=== PATIENT | male | born 1980 | race Caucasian/White ===

== ENCOUNTER 2016-12-08 00:24 | Inpatient (IN) | payer BC, OTHER ==
[~2016-12-08] VITALS: Ht 185.4 cm; Wt 88.5 kg
--- NOTE | 2016-12-08 00:30 | NUR ---
PRE-ADMISSION NOTE Pt is a 36 y/o male, seen at intake, AAOx4, no SOB with mild anxiety noted at this time. Discussed with patient the admission policies of the unit. Patient is coherent and able to respond to questions appropriately. Pt is ambulatory with steady gait. Vital signs taken and as follows: BP: 136/85, P: 75, R: 16, O2: 98%, T: 98, PA: 0. Pt verbalized understanding of instructions and teachings regarding disposal of narcotic and other controlled home medications, unit protocols such as taking of vital signs Q4H and handling and disposal of contraband. Will continue with admission upon pts arrival on the unit.
[2016-12-08 00:44] VITALS: BP 136/85
--- NOTE | 2016-12-08 00:44 | NUR ---
ADMISSION NOTE Pt is a 36 y/o male admitted on 12/08/16 for Opiate dependence, arrived on the unit at 0044. Pt has NKA, denies history of seizures. Pt was able to provide UDS. Upon admission CIWA 5, COWS 6, BP: 136/85, P: 75, R: 16, O2: 98%, T: 98, PA: 0.Weight 195, height 61. Pt reports he does not have a PCP, reports he does not smoke, denies being hospitalized within past 30 days. Pt is able to understand and respond to all questions pertaining to his hospitalization. Substance Abuse History is as follows: 1. Heroin 0.5g 1g/daily, last intake of 1g on 12/04/2016 at this rate for the past 2-3 months, has been using for about 2-3 years. 2.Xanax 2-4mg/occasionally, last intake of 4mg on 12/07/2016 at this rate for the past 2-3 months, has been using for about 2-3 years. 3.Klonopin 3-4mg/occasionally, last intake of 3mg on 12/07/2016 at this rate for the past 2-3 moths, has been use for about 2-3 year. Pt reports he has hx of OxyContin use, last use was about 7 months ago. Pt reports he stopped using on his own. Pt urine drug screen resulted positive for Amphetamines. Pt takes Adderall 30mg for diagnosis of ADHD. Pts longest sober period for 2 year from [id number], per pt. Pt states this is his first time in treatment. Pt states both of his maternal uncles and paternal grandfather were alcoholics. PMH: Borderline HTN, Anxiety, Depression, ADHD and Herniated Disc L2 and fusion in (2013). Pt denies hx of seizures. Upon assessment, pt is AAOx4, presents with anxiety, skin is flushed, and has mild muscle aches. Respirations even and unlabored. Denies SOB, chest pain, N/V/D. Bowel sounds active x 4, abdomen soft. PERRLA. Skin intact, no open wounds noted. Pt denies SI/HI. Educational information provided and left at bedside. Pt oriented to room and encouraged to notify staff with any concerns. Safety measures in place. Call light within reach, side rails up x 2, bed locked and in low position. Will continue to monitor. Addendum: 12/08/16 at 0252 by AL WEBB RN PMH: Borderline HTN, Anxiety, Depression, ADHD, Sinus Sx (2012) and Herniated Disc L2 and fusion in (2012) Addendum: 12/08/16 at 0619 by AL WEBB RN Pt reported taking Subutex for 4 day Prior to [facility] admission. Pt reports taking: Suboxone SL 16mg on 12/03/2016, Suboxone SL 16mg on 12/04/2016 Suboxone SL 8mg on 12/05/2116 Suboxone SL 8mg on 12/06/2016
[2016-12-08] MEDS ORDERED: ACETAMINOPHEN 325 MG TABLET PO PRN (01:00)
[2016-12-08] MEDS ORDERED: IBUPROFEN 400 MG TABLET PO PRN (01:00)
[2016-12-08] MEDS ORDERED: MAGNESIUM HYDROXIDE 30 ML LIQUID UDC PO PRN (01:00)
[2016-12-08] MEDS ORDERED: MIRALAX 17 GM POWD.PACK PO PRN (01:00)
[2016-12-08] MEDS ORDERED: BUPRENORPHINE HCL 2 MG TAB.SUBL SL PRN (01:00)
[2016-12-08] MEDS ORDERED: LOPERAMIDE HCL 2 MG CAPSULE PO PRN ×2 (01:00)
[2016-12-08] MEDS ORDERED: ONDANSETRON 4 MG/2 ML VIAL IM PRN (01:00)
[2016-12-08] MEDS ORDERED: ONDANSETRON ODT 4 MG TAB.RAPDIS SL PRN (01:00)
[2016-12-08] MEDS ORDERED: MAG HYDROX/AL HYDROX/SIMETH 30 ML LIQUID UDC PO PRN (01:00)
[2016-12-08] MEDS ORDERED: diphenhydrAMINE 50 MG CAPSULE PO PRN (01:00)
[2016-12-08] MEDS ORDERED: DICYCLOMINE HCL 20 MG TABLET PO PRN (01:00)
[2016-12-08] MEDS ORDERED: SODI50DR BNOSTRILS (01:16)
[2016-12-08] MEDS ORDERED: SERT100T PO (01:16)
[2016-12-08 01:49] LABS: BASOPHILS # (AUTO) 0.1 K/uL (0.0-8.0); BASOPHILS % (AUTO) 1.1 % (0.0-2.0); EOSINOPHILS # (AUTO) 0.1 K/uL (0.0-0.7); EOSINOPHILS % (AUTO) 1.5 % (0.0-7.0); HEMATOCRIT 46.9 % (40-50); HEMOGLOBIN 15.6 G/DL (14.0-18.0); LYMPHOCYTES # (AUTO) 3.1 K/UL (0.8-4.8); LYMPHOCYTES % (AUTO) 35.7 % (20.5-51.5); MEAN CORPUSCULAR HEMOGLOBIN 28.6 UUG (27.0-31.0); MEAN CORPUSCULAR HGB CONC 33 g/dL (32.0-37.0); MEAN CORPUSCULAR VOLUME 86.2 FL (82.0-92.0); MONOCYTES # (AUTO) 0.7 K/UL (0.1-1.30); MONOCYTES % (AUTO) 7.7 % (0.0-11.0); NEUTROPHILS # (AUTO) 4.6 K/UL (1.8-8.9); PLATELET COUNT (AUTO) 416 K/UL (150-450); RED BLOOD CELL COUNT(AUTO) 5.44 MIL/UL (4.7-6.1); WHITE BLOOD COUNT (AUTO) 8.6 K/UL (4.0-11.2)
[2016-12-08 02:02] LABS: ALANINE AMINOTRANSFERASE 29 U/L (16-63); ALKALINE PHOSPHATASE 74 U/L (50-136); AMYLASE 44 U/L (25-115); ASPARTATE AMINOTRANSFERASE 17 U/L (15-37); BILIRUBIN,TOTAL 0.3 mg/dL (0.2-1.0); CARBON DIOXIDE 31 mmol/L (21-32); CHLORIDE 100 mmol/L (98-107); GLUCOSE 71 mg/dL (74-106); LIPASE 138 U/L (73-393); MAGNESIUM 2.1 mg/dL (1.8-2.4); POTASSIUM 3.4 mmol/L (3.5-5.1); TOTAL PROTEIN, SERUM 8.6 g/dL (6.4-8.2); UREA NITROGEN, BLOOD 13 mg/dL (7-18)
[2016-12-08 02:03] LABS: ETHANOL < 3 MG/DL (0-0)
[2016-12-08 02:12] LABS: THYROID STIMULATING HORMONE 5.861 mIU/mL (0.358-3.740)
[2016-12-08 02:17] LABS: *AMPHETAMINE, URINE POSITIVE (NEGATIVE); *BARBITURATE, URINE NEGATIVE (NEGATIVE); *CANNABINOID, URINE NEGATIVE (NEGATIVE); *COCCAINE, URINE NEGATIVE (NEGATIVE); *OPIATE, URINE POSITIVE (NEGATIVE); *PHENCYCLIDINE SCREEN,URINE NEGATIVE (NEGATIVE)
[2016-12-08] MEDS ORDERED: AMPH30CA3 PO (03:07)
[2016-12-08 04:00] VITALS: BP 105/56
[2016-12-08] MEDS: HYDROXYZINE PAMOATE 25 MG CAPSULE PO PRN (04:17)
--- NOTE | 2016-12-08 04:17 | NUR ---
PRN Administration Pt reports feeling anxious, requests aid. Vistaril 25mg PRN administered. Safety measures in place. will continue to monitor.
[2016-12-08] MEDS ORDERED: HYDROXYZINE PAMOATE 25 MG CAPSULE ONE (04:30)
[2016-12-08] MEDS ORDERED: LORAZEPAM 1 MG TABLET PO PRN ×2 (05:00)
[2016-12-08] MEDS ORDERED: LORAZEPAM 2 MG/1 ML VIAL IM PRN (05:00)
--- NOTE | 2016-12-08 05:17 | NUR ---
PRN Reassessment Upon reassessment, pt is in bed with eyes closed, resting - respirations even/unlabored. Safety measures in place, will continue to monitor.
--- NOTE | 2016-12-08 07:00 | NUR ---
End of Shift Pt is a 36 year old male admitted on 12/08/16 for Opiate dependence. Pt reported using Heroin 0.5g 1g/daily, Xanax 2-4mg/occasionally and Klonopin 3-4mg/occasionally. Pt has hx of OxyContin use. Pt reports he used Suboxone SL 16 mg on 12/03/2016 & 12/04/2016 and 8mg on 12/05/2016 & 12/06/2016. PMH: Borderline HTN, Anxiety, Depression, ADHD, Sinus Sx (2012) and Herniated Disc L2 and fusion in (2012). NKA, regular diet, fall/seizure precautions and full code. During shift, CIWA 5 and COWS 6. Vistaril 25mg PRN administered for anxiety. Pt slept for 4 hours, intake of 500 ml PO, voids x 1 and stool x0. Safety measures in place, call light within reach, side rails up x2, bed locked and in low position. Endorsed to day shift nurse.
--- NOTE | 2016-12-08 07:30 | NUR ---
START OF SHIFT Pt 36 y/o male admitted opiate dependence. Pt received in the room on bed with eyes closed resting, but easily arousable to name. Pt alert and oriented to name, place, and time. Perrla. Skin warm and dry to touch. Respirations even and unlabored. It was reported that pt slept for 4 hours last night. Bed on lowest position with side rails x2 up for safety. Call light within reach. No distress noted at this time.
[2016-12-08 08:00] VITALS: BP 118/74
[2016-12-08] MEDS ORDERED: PNEUMOCOCCAL 23-VAL P-SAC VAC 0.5 ML VIAL IM ONE (09:00)
[2016-12-08] MEDS ORDERED: TUBERCULIN,PURIF.PROT.DERIV. 5 TU/0.1 ML TEST ID ONE (09:00)
[2016-12-08] MEDS: MULTIVITAMINS,THERAPEUTIC TABLET PO SCH (09:29)
[2016-12-08] MEDS: METHOCARBAMOL 750 MG TABLET PO PRN ×2 (09:29→20:58)
--- NOTE | 2016-12-08 09:29 | NUR ---
PRN Pt states feels nauseous. Zofran odt prn per MD order given and tolerated well.
--- NOTE | 2016-12-08 09:29 | NUR ---
PRN Pt states has body aches 6/10, switches from hold and cold, and experiences chills and sweats, and has goosebumps. cows=16. Subutex SL prn per MD order given and tolerated well.
--- NOTE | 2016-12-08 09:29 | NUR ---
PRN Pt states has body aches 6/10. Robaxin po prn per MD order given and tolerated well.
[2016-12-08] MEDS ORDERED: POTASSIUM CHLORIDE 10 MEQ CAPSULE.SA PO ONE (09:30)
--- NOTE | 2016-12-08 10:29 | NUR ---
PRN DELILAH Pt states body aches 04/02. Pt observed on bed in room. No distress noted at this time.
--- NOTE | 2016-12-08 10:29 | NUR ---
PRN EVAL pt with cows=8. Pt observed on bed. No distress noted at this time.
--- NOTE | 2016-12-08 10:29 | NUR ---
PRN EVAL Pt denies any nausea at this time.
[2016-12-08] MEDS ORDERED: IBUPROFEN 600 MG TABLET PO PRN (12:15)
[2016-12-08 12:36] VITALS: BP 106/89
[2016-12-08] MEDS: BUPRENORPHINE HCL 2 MG TAB.SUBL SL SCH ×2 (14:16→20:58)
[2016-12-08] MEDS: GABAPENTIN 300 MG CAPSULE PO SCH ×2 (14:16→20:58)
[2016-12-08] MEDS: LORAZEPAM 1 MG TABLET PO SCH ×2 (14:16→20:58)
[2016-12-08] MEDS ORDERED: INFLUENZA VACCINE 2017-2018 0.5 ML DISP.SYRIN IM ONE (15:00)
[2016-12-08 18:28] VITALS: BP 137/85
--- NOTE | 2016-12-08 18:31 | NUR ---
END OF SHIFT Pt 36 y/o male admitted for opiate dependence. Pt alert and oriented to name, place, and time. Perrla. Skin warm and slightly moist to touch. Respirations even and unlabored. Pt observed isolative to room. Pt did not attend group activity today. Pt was seen by MD today. Pt medication compliant and tolerated well. No ASE noted. Bed on lowest position with side rails x2 up for safety. Call light within reach. No distress noted at this time.
[2016-12-08 20:00] VITALS: BP 117/72
--- NOTE | 2016-12-08 20:00 | NUR ---
Start of Shift Note: Report received from day shift nurse. Pt is a 36M admitted on 12/08/16 for medically-supervised withdrawal from opiates and benzodiazepines. Pt reports using 0.5-1g heroin daily for 2-3 months, and then tapering off the heroin outpatient with 18 to 8mg Suboxone since 12/03/16. Pt also reports using Xanax 2-4mg and Klonopin 3-4mg on an intermittent basis for 2-3 months. Pt is on an Ativan taper ending 12/10/16 at 21:00, and Subutex taper ending 12/11/16 at 09:00. Pt received with last COWS=6/CIWA=3, and PRN's Zofran, Subutex, and Robaxin were given during day shift. Pt is a full code. Pt is on a regular diet. Pt reports NKDA/NKFA. PMHx: borderline HTN, anxiety, depression, ADHD, L2 herniated disk fusion (2012) and sinus surgery (2013). Pt received in room and reports anxiety, diaphoresis, chills, and back pain with myalgia; pt noted with bilateral hand tremor. Bed is in low position and locked, side rails up x2, call light is within reach. Will continue to monitor.
--- NOTE | 2016-12-08 20:58 | NUR ---
PRN Robaxin: Patient complains of myalgia in lower back. Patient rates pain 5/10. Administered PRN Robaxin as ordered. Will continue to monitor.
--- NOTE | 2016-12-08 22:00 | NUR ---
PRN Robaxin Reassessment: Patient reports that PRN Robaxin was effective, and denies myalgia at this time. Will continue to monitor.
[2016-12-09] VITALS: BP 106/59
--- NOTE | 2016-12-09 | NUR ---
COWS/CIWA Deferred: COWS and CIWA are deferred for sleep. VSS. All safety precautions are in place. Will continue to monitor. Addendum: 12/09/16 at 0146 by SILVIA ALDANA RN Amended: Links added.
--- NOTE | 2016-12-09 04:00 | NUR ---
Vitals Refused, COWS/CIWA Deferred: Patient refuses ordered 04:00 vital signs. Patient educated on risks and benefits but still refused. COWS and CIWA are deferred for sleep. All safety precautions are in place. Will continue to monitor. Addendum: 12/09/16 at 0441 by SILVIA ALDANA RN Amended: Links added.
--- NOTE | 2016-12-09 07:03 | NUR ---
End of Shift Note: Pt is a 36M admitted to [facility] on 12/08/16 for medically-supervised withdrawal from opiates and benzodiazepines. Pt reported a PMHx of borderline HTN, anxiety, depression, ADHD, L2 herniated disk fusion (2012) and sinus surgery (2012). Pt is a full code, is on a regular diet, and reports NKDA/NKFA. Pt reported using 0.5-1g heroin daily for 2-3 months, then beginning Suboxone for outpatient detox on 12/03/16. Pt also reported using Xanax 2-4mg and Klonopin 3-4mg on an intermittent basis for 2-3 months. Pt continues on Ativan and Subutex tapers. Scheduled medication regime effectively managed s/s of withdrawal this shift, in addition to PRN Robaxin for myalgia. Last COWS=6/CIWA=8 at 20:00 before taper medications were administered. V/S stable throughout shift. Total fluid intake this shift: 625 ml; output: urine x 0 and BM x 0. Pt is currently in bed and slept 10 hours this shift. All needs have been attended and met. Pt endorsed to day shift nurse.
--- NOTE | 2016-12-09 07:20 | NUR ---
Start of Shift Endorsement received from nightshift nurse. Pt is a 36 y/o male admitted for Heroin, Xanax and Klonopin dependence. Pt has been placed on a 4 day Ativan and 4 day Subutex taper. Pt is tolerating the detox process AEB COWS 6, CIWA 8 at 1999. Pt has received PRN Robaxin for body aches. PT reports sleeping 10 hours. VS WNL. Full Code. PT is alert and oriented x4. Pt is in STABLE condition at this time. Remains compliant with medication and diet regimen. All needs have been met, All safety measures in place per hospital policy. Bed in lowest position, side rails up x2, call-light within reach. Will continue to monitor
[2016-12-09 08:00] VITALS: BP 113/68
[2016-12-09 08:10] LABS: HEPATITIS B SURFACE AG Negative (Negative)
[2016-12-09] MEDS ORDERED: BUPRENORPHINE HCL 2 MG TAB.SUBL SL SCH (09:00)
[2016-12-09] MEDS ORDERED: LORAZEPAM 1 MG TABLET PO SCH ×3 (09:00→21:00)
[2016-12-09] MEDS: SERTRALINE HCL 100 MG TABLET PO SCH (09:20)
[2016-12-09] MEDS: GABAPENTIN 300 MG CAPSULE PO SCH ×3 (09:20→20:37)
[2016-12-09] MEDS: MULTIVITAMINS,THERAPEUTIC TABLET PO SCH (09:21)
--- NOTE | 2016-12-09 09:57 | NUR ---
Client was prompted to attend daily groups. Client did dot give a definitive answer.
[2016-12-09 12:00] VITALS: BP 114/71
[2016-12-09] MEDS: BUPRENORPHINE HCL 2 MG TAB.SUBL SL SCH ×2 (15:39→20:37)
[2016-12-09 16:00] VITALS: BP 125/74
--- NOTE | 2016-12-09 19:25 | NUR ---
End of Shift Endorsement given to nightshift nurse. Pt is a 36 y/o male admitted for Heroin, Xanax and Klonopin dependence. Pt has been placed on a 4 day Ativan and 4 day Subutex taper. Pt is tolerating the detox process AEB COWS 6, CIWA 4 at 1600. Pt has not received PRN medications. Pt participated in groups and activities. Educated pt on Medication regimen and diet regimen. Intake: 1500ml, Void x2, BM x0. VS WNL. Full Code. PT is alert and oriented x4. Pt is in STABLE condition at this time. Remains compliant with medication and diet regimen. All needs have been met, All safety measures in place per hospital policy. Bed in lowest position, side rails up x2, call-light within reach. Will continue to monitor
--- NOTE | 2016-12-10 07:10 | NUR ---
Start of Shift Endorsement received from nightshift nurse. Pt is a 36 y/o male admitted for Heroin, Xanax and Klonopin dependence. Pt has been placed on a 4 day Ativan and 4 day Subutex taper. Pt is tolerating the detox process and mildly withdrawing AEB COWS 2, CIWA 2 at 0400. Pt has received PRN Benadryl. PT reports sleeping 5 hours. VS WNL. Full Code. PT is alert and oriented x4. Pt is in STABLE condition at this time. Remains compliant with medication and diet regimen. All needs have been met, All safety measures in place per hospital policy. Bed in lowest position, side rails up x2, call-light within reach. Will continue to monitor
[2016-12-10 08:00] VITALS: BP 104/70
[2016-12-10] MEDS ORDERED: LORAZEPAM 1 MG TABLET PO SCH (09:00)
[2016-12-10] MEDS: LORAZEPAM 1 MG TABLET PO SCH ×3 (09:00→20:46)
[2016-12-10] MEDS: MULTIVITAMINS,THERAPEUTIC TABLET PO SCH (09:00)
[2016-12-10] MEDS: SERTRALINE HCL 100 MG TABLET PO SCH (09:00)
[2016-12-10] MEDS: GABAPENTIN 300 MG CAPSULE PO SCH ×3 (09:00→20:46)
[2016-12-10] MEDS: BUPRENORPHINE HCL 2 MG TAB.SUBL SL SCH ×3 (09:00→20:47)
[2016-12-10 12:00] VITALS: BP 122/65
[2016-12-10 16:00] VITALS: BP 114/68
--- NOTE | 2016-12-10 18:50 | NUR ---
End of Shift Endorsement given to nightshift nurse. Pt is a 36 y/o male admitted for Heroin, Xanax and Klonopin dependence. Pt has been placed on a 4 day Ativan and 4 day Subutex taper. Pt is tolerating the detox process and mildly withdrawing AEB COWS 4, CIWA 2 at 1600. Pt has not received PRN medications. Pt participated in groups and activities. Educated pt importance of participating in groups and building the tools to help him stay sober. Educated pt on deep breathing technique to help relieve minor to moderate anxiety. . VS WNL. Full Code. PT is alert and oriented x4. Pt is in STABLE condition at this time. Remains compliant with medication and diet regimen. All needs have been met, All safety measures in place per hospital policy. Bed in lowest position, side rails up x2, call-light within reach. Will continue to monitor
--- NOTE | 2016-12-10 19:55 | NUR ---
START OF SHIFT Received report from day shift nurse. Pt is lying in bed resting. He is a 36 yo male admitted to [facility] on 12/08 for Opiate and BZD dependence. He is A&O x4 and ambulatory. NKA, full code status, and on a regular diet. He has a PMH of borderline HTN, herniated disc fusion, anxiety, depression, and ADHD. On admission he reported using heroin 0.5-1 gram per day, Xanax 2-4mg occasionally, Klonopin 3-4mg occasionally. He reported using Suboxone to taper at home for three days prior to admission. Pt started a 4 day Subutex and 4 day Ativan taper on 12/08. He reports feeling "a little down" because he misses his . Pt denies SI/HI. Provided support. Tapers due tonight. Fall and seizure precautions in place. Bed is down with call light in reach.
[2016-12-10 20:00] VITALS: BP 135/83
[2016-12-10] MEDS: QUETIAPINE FUMARATE 25 MG TABLET PO PRN (20:47)
--- NOTE | 2016-12-10 20:48 | NUR ---
PRN Seroquel Pt reports inability to sleep. PRN Seroquel administered.
--- NOTE | 2016-12-10 21:48 | NUR ---
PRN Seroquel reassessment PRN Seroquel effective. Pt is lying in bed resting with eyes closed. Respirations even and unlabored. Safety measures in place.
[2016-12-11] VITALS: BP 136/79
--- NOTE | 2016-12-11 | NUR ---
0000 COWS and CIWA deferred COWS and CIWA ordered Q4HWA. Pt is lying in bed resting with eyes closed. Respirations even and unlabored. Vital signs obtained. Safety measures in place.
--- NOTE | 2016-12-11 04:00 | NUR ---
0400 Vitals refused/COWS and CIWA deferred Pt refused to be woken for 0400 vitals. He is lying in bed resting with eyes closed. Respirations even and unlabored. COWS and CIWA ordered Q4HWA. Safety measures in place.
--- NOTE | 2016-12-11 07:10 | NUR ---
END OF SHIFT Report provided to day shift nurse. Pt is lying in bed resting. He is a 36 yo male admitted to [facility] on 12/08 for Opiate and BZD dependence. He is A&O and ambulatory. NKA, full code status, and on a regular diet. He has a PMH of borderline HTN, herniated disc fusion, anxiety, depression, and ADHD. Upon admission he admitted to using heroin 0.5-1 gram per day, Xanax 2-4mg occasionally, Klonopin 3-4mg occasionally. He also reported using Suboxone to taper at home for three days prior to admission. 4 day subutex and 4 day ativan tapers started on 12/08. PRN Seroquel administered. Last COWS 4 and CIWA 4. He drank 1000mL and slept for 9 hours. Fall and seizure precautions in place. Bed is down with call light in reach.
--- NOTE | 2016-12-11 07:15 | NUR ---
Start of Shift Endorsement received from nightshift nurse. Pt is a 36 y/o male admitted for Heroin, Xanax and Klonopin dependence. Pt has been placed on a 4 day Ativan and 4 day Subutex taper. Pt is tolerating the detox process and mildly withdrawing AEB COWS 4, CIWA 4 at 0400. Pt has received PRN Seroquel. Pt reports readiness for sobriety and feels well rested. Pt reports the Seroquel was effective. PT reports sleeping 9 hours. VS WNL. Full Code. PT is alert and oriented x4. Pt is in STABLE condition at this time. Remains compliant with medication and diet regimen. All needs have been met, All safety measures in place per hospital policy. Bed in lowest position, side rails up x2, call-light within reach. Will continue to monitor
[2016-12-11 08:00] VITALS: BP 111/72
[2016-12-11] MEDS: BUPRENORPHINE HCL 2 MG TAB.SUBL SL SCH ×2 (08:27→20:33)
[2016-12-11] MEDS: GABAPENTIN 300 MG CAPSULE PO SCH ×3 (08:27→20:31)
[2016-12-11] MEDS: MULTIVITAMINS,THERAPEUTIC TABLET PO SCH (08:27)
[2016-12-11] MEDS: LORAZEPAM 1 MG TABLET PO SCH ×2 (08:27→20:31)
[2016-12-11] MEDS: SERTRALINE HCL 100 MG TABLET PO SCH (08:27)
[2016-12-11] MEDS ORDERED: BUPRENORPHINE HCL 2 MG TAB.SUBL SL SCH (09:00)
[2016-12-11] MEDS ORDERED: LORAZEPAM 1 MG TABLET PO SCH (09:00)
[2016-12-11 12:00] VITALS: BP 117/65
[2016-12-11] MEDS: CLONIDINE HCL 0.1 MG TABLET PO PRN (15:25)
[2016-12-11 17:32] VITALS: BP 126/68
--- NOTE | 2016-12-11 18:52 | NUR ---
End of Shift Endorsement given to nightshift nurse. Pt is a 36 y/o male admitted for Heroin, Xanax and Klonopin dependence. Pt has been placed on a 4 day Ativan and 4 day Subutex taper. Pt is tolerating the detox process and mildly withdrawing AEB COWS 3, CIWA 3 at 1600. Pt has received PRN Clonidine for increased anxiety and chills. Medication was effective, pt reports relieve from anxiety and chills. Pt participated in groups and activities. Pt reports readiness for discharge. Reinforced medication regimen teaching and medication S/E. Reinforced deep breathing technique to help relieve minor to moderate anxiety, pt demonstrated the technique correctly. Teaching was successful. Intake: 1500ml, Void x4, BM x1. VS WNL. Full Code. PT is alert and oriented x4. Pt is in STABLE condition at this time. Remains compliant with medication and diet regimen. All needs have been met, All safety measures in place per hospital policy. Bed in lowest position, side rails up x2, call-light within reach. Will continue to monitor
--- NOTE | 2016-12-11 20:00 | NUR ---
START OF SHIFT Received report from day shift nurse. Pt is lying in bed resting. He is a 36 yo male admitted to [facility] on 12/08 for Opiate and BZD dependence. He is A&O x4 and ambulatory. NKA, full code status, and on a regular diet. He has a PMH of borderline HTN, herniated disc fusion, anxiety, depression, and ADHD. Upon admission he admitted to using heroin 0.5-1 gram per day, Xanax 2-4mg occasionally, Klonopin 3-4mg occasionally. He reported using Suboxone to taper at home for three days prior to admission. 4 day Subutex and 4 day Ativan tapers started on 12/08. Tapers are working well to manage withdrawal symptoms. He reports mild anxiety and mild headache. Fall and seizure precautions in place. Bed is down with call light in reach.
[2016-12-11] MEDS: QUETIAPINE FUMARATE 25 MG TABLET PO PRN (20:31)
--- NOTE | 2016-12-11 20:32 | NUR ---
PRN Seroquel Pt reports inability to sleep. PRN Seroquel administered.
--- NOTE | 2016-12-11 21:32 | NUR ---
PRN Seroquel reassessment PRN Seroquel effective. Pt is lying in bed resting with eyes closed. Respirations even and unlabored. Safety measures in place.
[2016-12-11 22:00] VITALS: BP 118/67
--- NOTE | 2016-12-12 07:25 | NUR ---
END OF SHIFT Report provided to day shift nurse. Pt is lying in bed resting. He is a 36 yo male admitted to [facility] on 12/08 for Opiate and BZD dependence. He is A&O and ambulatory. NKA, full code status, and on a regular diet. He has a PMH of borderline HTN, herniated disc fusion, anxiety, depression, and ADHD. Upon admission he admitted to using heroin 0.5-1 gram per day, Xanax 2-4mg occasionally, Klonopin 3-4mg occasionally. He reported using Suboxone to taper at home for three days prior to admission. 4 day Subutex and 4 day Ativan tapers started on 12/08. PRN Seroquel administered. Last COWS 4 and CIWA 4. He drank 1300mL and slept for 7 hours. Fall and seizure precautions in place. Bed is down with call light in reach.
--- NOTE | 2016-12-12 07:45 | NUR ---
START OF SHIFT Rcvd endorsement from ongoing nurse, client is in bed, he is a/o x 4, he presents with anxious mood and flat affect and clammy skin. Client reports chills, body aches, abdominal cramps, and decreased appetite. Encouraged client to attend group therapy for skills to maintain sober. Encouraged client to increase PO fluid as tolerated to facilitate detox. Client is a 36 y/o male, admitted to [facility] for withdrawal from benzodiazepines and heroin. Client is on last of 4 day Ativan/ 4 day Subutex taper, tolerating well . Last CIWA 2/COWS 4 @ 0400. PRN Seroquel 50mg PO for inability to sleep, client slept 7 hrs. He denies any hx of withdrawal-induced seizures. He reports NKA, he is full code, Regular diet. Side rails x 2 up/padded, as seizure precautions. Call light within reach.
[2016-12-12 08:00] VITALS: BP 103/63
[2016-12-12] MEDS ORDERED: BUPRENORPHINE HCL 2 MG TAB.SUBL SL SCH (09:00)
[2016-12-12] MEDS ORDERED: LORAZEPAM 1 MG TABLET PO SCH (09:00)
[2016-12-12] MEDS: MULTIVITAMINS,THERAPEUTIC TABLET PO SCH (09:46)
[2016-12-12] MEDS: SERTRALINE HCL 100 MG TABLET PO SCH (09:46)
[2016-12-12] MEDS: GABAPENTIN 300 MG CAPSULE PO SCH ×3 (09:47→20:13)
[2016-12-12 12:00] VITALS: BP 139/86
--- NOTE | 2016-12-12 14:38 | NUR ---
Therapist prompted client about group times. Client stated he will attend groups today.
[2016-12-12] MEDS: CLONIDINE HCL 0.1 MG TABLET PO PRN (14:41)
[2016-12-12] MEDS: HYDROXYZINE PAMOATE 25 MG CAPSULE PO PRN (14:41)
--- NOTE | 2016-12-12 14:41 | NUR ---
PRN Bentyl 20mg Po, Clonidine 0.1mg, Vistaril 25mg PO administered for abdominal spasms, irritability, and anxiety respectively. Call light within reach. will continue to monitor.
--- NOTE | 2016-12-12 15:41 | NUR ---
Reassessment PRN Bentyl 20mg Po, Clonidine 0.1mg, Vistaril 25mg PO noted effective, client reports relief from abdominal spasms, feels less irritable and less anxious. Client able to join group therapy.
[2016-12-12 16:55] VITALS: BP 120/76
[2016-12-12] MEDS ORDERED: METH-406 PO (19:15)
[2016-12-12] MEDS ORDERED: HYDR-3895 PO (19:15)
[2016-12-12] MEDS ORDERED: GABA-534 PO ×2 (19:15)
[2016-12-12] MEDS ORDERED: QUET25TA PO (19:15)
[2016-12-12] MEDS ORDERED: CLONIDINE HCL 0.1 MG TABLET PO ONE (19:15)
[2016-12-12] MEDS ORDERED: CLON0.1T14 PO (19:15)
[2016-12-12] MEDS ORDERED: HYDROXYZINE PAMOATE 25 MG CAPSULE PO ONE (19:15)
[2016-12-12] MEDS ORDERED: DICY20TA28 PO (19:15)
[2016-12-12] MEDS ORDERED: IBUP-1955 PO (19:15)
--- NOTE | 2016-12-12 19:30 | NUR ---
END OF SHIFT Client is a 36 y/o male, a/o x 4, he was admitted to [facility] for withdrawal from benzodiazepines and heroin. Client completed 4 day Ativan/ 4 day Subutex taper, tolerated well . Last CIWA 3/ COWS 4 @ 1600. PRN Bentyl 20mg Po, Clonidine 0.1mg, Vistaril 25mg PO administered for abdominal spasms, irritability, and anxiety respectively, noted effective. Client is schedule for discharge tomorrow to [facility]. One time dose of Clonidine and Vistaril ordered, client is in group, endorsed to incoming nurse.Client was compliant with group therapy for skills to maintain sober. Adequate PO fluid intake 2840mL, void x 3, stool x 1. He denies any hx of withdrawal-induced seizures. He reports NKA, he is full code, Regular diet. Side rails x 2 up/padded, as seizure precautions. Call light within reach.
[2016-12-12 20:00] VITALS: BP 129/92
--- NOTE | 2016-12-12 20:00 | NUR ---
START OF SHIFT Received report from day shift nurse. Pt attended a group meeting and returned to his room after. He is a 36 yo male admitted to [facility] on 12/08 for Opiate and BZD dependence. He is A&O x4 and ambulatory. NKA, full code status, and on a regular diet. He has a PMH of borderline HTN, herniated disc fusion, anxiety, depression, and ADHD. Upon admission he admitted to using heroin 0.5-1 gram per day, Xanax 2-4mg occasionally, Klonopin 3-4mg occasionally. He reported using Suboxone to taper at home for three days prior to admission. 4 day Subutex and 4 day Ativan tapers completed and he is scheduled for discharge tomorrow. He reports anxiety. New one time orders placed by . Fall and seizure precautions in place. Bed is down with call light in reach.
[2016-12-12] MEDS: QUETIAPINE FUMARATE 25 MG TABLET PO PRN (20:13)
--- NOTE | 2016-12-12 20:14 | NUR ---
PRN Seroquel administration Pt reports inability to sleep. PRN Seroquel administered.
[2016-12-12] MEDS ORDERED: HYDROXYZINE PAMOATE 25 MG CAPSULE ONE (20:17)
[2016-12-12] MEDS ORDERED: CLONIDINE HCL 0.1 MG TABLET ONE (20:17)
--- NOTE | 2016-12-12 21:14 | NUR ---
PRN Seroquel reassessment PRN Seroquel effective. Pt is lying in bed resting with eyes closed. Respirations even and unlabored. Safety measures in place.
[2016-12-13] VITALS: BP 105/50
--- NOTE | 2016-12-13 | NUR ---
0000 COWS and CIWA deferred COWS and CIWA ordered Q4HWA. Pt is lying in bed resting with eyes closed. Vital signs obtained. Safety measures in place.
--- NOTE | 2016-12-13 07:30 | NUR ---
END OF SHIFT Report provided to day shift nurse. Pt is lying in bed resting. He is a 36 yo male admitted to [facility] on 12/08 for Opiate and BZD dependence. He is A&O x4 and ambulatory. NKA, full code status, and on a regular diet. He has a PMH of borderline HTN, herniated disc fusion, anxiety, depression, and ADHD. Upon admission he admitted to using heroin 0.5-1 gram per day, Xanax 2-4mg occasionally, Klonopin 3-4mg occasionally. He reported using Suboxone to taper at home for three days prior to admission. 4 day Subutex and 4 day Ativan tapers completed and he is scheduled for discharge today. PRN Seroquel administered. Last COWS 3 and CIWA 3. He drank 1135mL and slept for 8 hours. Fall and seizure precautions in place. Bed is down with call light in reach.
--- NOTE | 2016-12-13 07:30 | NUR ---
START OF SHIFT NOTE: Received report from rn night nurse. Pt is a 36 y/o male admitted for Heroin, Xanax and Klonopin dependence. Pt has completed a 4 day Ativan and 4 day Subutex taper. To be discharged this AM. Pt alert and oriented X4. Color good, skin warm and dry. Respirations even and unlabored. Safety precautions observed. Call light within reach.
--- NOTE | 2016-12-13 08:15 | NUR ---
VSS Pt signed discharge papers and medication bag.
[2016-12-13] MEDS: MULTIVITAMINS,THERAPEUTIC TABLET PO SCH (08:33)
[2016-12-13] MEDS: GABAPENTIN 300 MG CAPSULE PO SCH (08:33)
[2016-12-13] MEDS: SERTRALINE HCL 100 MG TABLET PO SCH (08:34)
--- NOTE | 2016-12-13 09:35 | NUR ---
Pt discharged in stable condition with all valuables, belongings and home medications. To [facility] via [facility] private car.
== END 2016-12-13 09:35 | disposition other institution (70) | DRG 895 ==
LOC: SRC 00:24
PROVIDERS: ADMIT Internal Medicine; ATTEND Internal Medicine
PROC: HZ2ZZZZ Detoxification Services for Substance Abuse Treatment (ICD-10-PCS; principal; 2016-12-08)
PROC: HZ41ZZZ Group Counseling for Substance Abuse Treatment, Behavioral (ICD-10-PCS; 2016-12-09)
PROC: HZ31ZZZ Individual Counseling for Substance Abuse Treatment, Behavioral (ICD-10-PCS; 2016-12-10)
DX: F11.23 Opioid dependence with withdrawal (principal); E07.81 Sick-euthyroid syndrome; F13.230 Sedative, hypnotic or anxiolytic dependence with withdrawal, uncomplicated; E87.6 Hypokalemia; F15.90 Other stimulant use, unspecified, uncomplicated; F98.8 Other specified behavioral and emotional disorders with onset usually occurring in childhood and adolescence; G89.29 Other chronic pain; Z80.8 Family history of malignant neoplasm of other organs or systems; Z81.1 Family history of alcohol abuse and dependence; Z79.899 Other long term (current) drug therapy; Z98.1 Arthrodesis status; F41.9 Anxiety disorder, unspecified; F32.9 Major depressive disorder, single episode, unspecified; M54.5 Low back pain
CPT/HCPCS: 36415; 70030-TC; 80307; 80324; 80361; 83690; 83735; 84443; 85025; 86580; 86592; 86705; 86803; 87340; 87806; 90686; A4663; G0480; Q0162; Q0163

== ENCOUNTER 2017-07-05 19:25 | Inpatient (IN) | payer BC, OTHER ==
[~2017-07-05] VITALS: Ht 188 cm; Wt 88.5 kg
[~2017-07-05 19:25] MED LIST: CLON0.1T14 PO; DICY20TA28 PO; GABA-534 PO; HYDR-3895 PO; IBUP-1955 PO; METH-406 PO; QUET25TA PO; SERT100T PO; SODI50DR BNOSTRILS
[2017-07-05 19:55] VITALS: BP 138/83
--- NOTE | 2017-07-05 19:55 | NUR ---
RPRE-ADMISSION NOTE VS BP-138/83 T-98.5 P-86 R-15 PA-0/10. SpO2 AT 96 % IN RA. PATIENT AMBULATORY. SPEECH IS CLEAR AND ABLE TO ANSWER APPROPRIATELY. PATIENT STATES HES ALLERGIC TO SHELLFISH. NO SEIZURE HISTORY. PATIENT BROUGHT HOME MEDICATION. PATIENT MILDLY INTOXICATED. WILL CONTINUE ADMISSION ON 3RD FLOOR.
[2017-07-05] MEDS ORDERED: NICOTINE POLACRILEX 4 MG GUM-PK OF TEN BC PRN (21:00)
[2017-07-05] MEDS ORDERED: DICYCLOMINE HCL 20 MG TABLET PO PRN (21:00)
[2017-07-05] MEDS ORDERED: ONDANSETRON 4 MG/2 ML VIAL IM PRN (21:00)
[2017-07-05] MEDS ORDERED: LORAZEPAM 1 MG TABLET PO PRN ×2 (21:00)
[2017-07-05] MEDS ORDERED: METHOCARBAMOL 750 MG TABLET PO PRN (21:00)
[2017-07-05] MEDS ORDERED: ONDANSETRON ODT 4 MG TAB.RAPDIS SL PRN (21:00)
[2017-07-05] MEDS ORDERED: diphenhydrAMINE 50 MG CAPSULE PO PRN (21:00)
[2017-07-05] MEDS ORDERED: MAG HYDROX/AL HYDROX/SIMETH 30 ML LIQUID UDC PO PRN (21:00)
[2017-07-05] MEDS ORDERED: BUPRENORPHINE HCL 2 MG TAB.SUBL SL PRN (21:00)
[2017-07-05] MEDS ORDERED: NICOTINE 14 MG/24HR PATCH TD PRN (21:00)
[2017-07-05] MEDS ORDERED: MAGNESIUM HYDROXIDE 30 ML LIQUID UDC PO PRN (21:00)
[2017-07-05] MEDS ORDERED: HYDROXYZINE PAMOATE 25 MG CAPSULE PO PRN (21:00)
[2017-07-05] MEDS ORDERED: CLONIDINE HCL 0.1 MG TABLET PO PRN (21:00)
[2017-07-05] MEDS ORDERED: IBUPROFEN 600 MG TABLET PO PRN (21:00)
[2017-07-05] MEDS ORDERED: LORAZEPAM 2 MG/1 ML VIAL IM PRN (21:00)
[2017-07-05] MEDS ORDERED: LOPERAMIDE HCL 2 MG CAPSULE PO PRN ×2 (21:00)
[2017-07-05] MEDS ORDERED: ACETAMINOPHEN 325 MG TABLET PO PRN (21:00)
[2017-07-05] MEDS ORDERED: MIRALAX 17 GM POWD.PACK PO PRN (21:00)
--- NOTE | 2017-07-05 21:00 | NUR ---
ADMISSION NOTE PATIENT CAME IN THE UNIT AT 2016. PATIENT IS A 37 YEAR OLD MALE WHO PRESENTS TO [facility] FOR SUPERVISED WITHDRAWAL FROM BENZO/OPIATE. HEIGHT IS 6'2 AND 195 LBS. LUNGS CLEAR AND ABDOMEN SOFT AND NON-DISTENDED. BOWEL SOUNDS ACTIVE ON ALL QUADRANT. LAST BOWEL MOVEMENT TODAY AND PATIENT HAD DIFFICULTY URINATING, PER PATIENT, ONLY WHEN HES ON METH. PATIENT ABLE TO PROVIDE UA AT INTAKE. RESPIRATION EVEN AND UNLABORED. NO SOB. BODY CHECK DONE , SKIN CLEAR AND INTACT. PATIENT REQUESTED TO BE FULL CODE AND REGULAR DIET. REPORTS PMH OF ANXIETY, DEPRESSION, JAW SURGERY (5 YEARS AGO) AND LEFT ANKLE SURGERY LAST 1997. NO SEIZURE HISTORY. PATIENT BROUGHT HOME MEDS (ZOLOFT ). PATIENT DOES NOT HAVE PCP. HE REFUSED TO HAVE PNEUMONIA VACCINE BECAUSE OF THE ADVERSE REACTIONS. PATIENT IS ALLERGIC TO SHELLFISH. 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 HES HERE BECAUSE "I WANT TO GET SOBER". HE RELAPSED ON METH 1 MONTHS AGO, PER PATIENT THAT HE RECEIVED PACKAGE WITH METH INSIDE, IT WAS MISTAKENLY SENT TO HIS HOUSE. PATIENTS DRUG OF CHOICE ARE: 1.XANAX (PRESCRIBED FOR ANXIETY) STARTED USING 3 YEARS AGO. HE TAKES 2 MG DAILY FOR 1 MONTHS . LAST USE WAS 3 MG ON 07/04/17 2.KLONOPIN-(PRESCRIBED FOR ANXIETY) STARTED USING 5 YEARS AGO. HE TAKES 4 MG DAILY FOR 1 MONTHS . LAST USE WAS 6 MG ON 07/05/17 3.SUBOXONE (PRESCRIBED FOR MAINTENANCE FOR HEROIN USE)-STARTED USING 3 MONTHS AGO. HE TAKES 8 MG DAILY FOR 3 MONTHS. LAST USE WAS 8 MG ON 07/04/17 4.METHAMPHETAMINE (SNORT)-STARTED USING LAST YEAR. HE SNORTS 4-7 LINE DAILY FOR 1 MONTHS. LAST USE WAS "7 LINES" ON 07/05/17 HE STATES THAT HE WAS USING HEROIN BEFORE , LAST USE WAS 10 MONTHS AGO. PATIENT STATE HES NOT A SMOKER BUT SMOKES ONLY WHEN HE'S IN DETOX. NO SI/HI. PER PATIENT HES LONGEST PERIOD OF SOBRIETY WAS 2 YEARS IN [id number]. TREATMENT HISTORY: 1.[facility] IN [place] ON 2016 2. [facility] NOV 2016 3.[facility]--2016 PATIENT IS MILDLY INTOXICATED. LAST COWS 7 AND CIWA 7. PATIENT ANXIOUS, RESTLESS, FACE FLUSHED AND SWEATING .PATIENT WAS SEEN BY DR Mayank SONI. PATIENT ORIENTED TO SURROUNDINGS AND HOW TO USE CALL LIGHT . EXPLAINED UNIT , SMOKING POLICIES AND Q4HRS VS. ON FALL PRECAUTION. SAFETY MEASURES IN PLACE. CALL LIGHT IN REACH. WILL CONTINUE TO MONITOR.
[2017-07-05 21:44] LABS: *AMPHETAMINE, URINE POSITIVE (NEGATIVE); *BARBITURATE, URINE NEGATIVE (NEGATIVE); *CANNABINOID, URINE NEGATIVE (NEGATIVE); *COCCAINE, URINE NEGATIVE (NEGATIVE); *OPIATE, URINE NEGATIVE (NEGATIVE); *PHENCYCLIDINE SCREEN,URINE NEGATIVE (NEGATIVE)
[2017-07-05 21:50] LABS: BASOPHILS % (AUTO) 0.6 % (0.0-2.0); EOSINOPHILS # (AUTO) 0.3 K/uL (0.0-0.7); EOSINOPHILS % (AUTO) 5.6 % (0.0-7.0); HEMATOCRIT 37.1 % (36.7-47.1); LYMPHOCYTES # (AUTO) 1.8 K/uL (20.0-40.0); LYMPHOCYTES % (AUTO) 34.7 % (20.5-51.5); MEAN CORPUSCULAR HEMOGLOBIN 29.9 uug (23.8-33.4); MEAN CORPUSCULAR HGB CONC 35 g/dL (32.5-36.3); MEAN CORPUSCULAR VOLUME 85.5 fL (73.0-96.2); MONOCYTES # (AUTO) 0.4 K/uL (2.0-10.0); MONOCYTES % (AUTO) 7.4 % (0.0-11.0); NEUTROPHILS # (AUTO) 2.7 K/uL (1.8-8.9); NEUTROPHILS % (AUTO) 51.7 % (38.5-71.5); PLATELET COUNT (AUTO) 253 K/uL (152-348); RED BLOOD CELL COUNT(AUTO) 4.34 MIL/uL (4.06-5.63); WHITE BLOOD COUNT (AUTO) 5.2 K/uL (3.6-10.2)
[2017-07-05 22:00] LABS: ALANINE AMINOTRANSFERASE 31 U/L (16-63); ALKALINE PHOSPHATASE 68 U/L (50-136); ASPARTATE AMINOTRANSFERASE 20 U/L (15-37); BILIRUBIN,TOTAL 0.2 mg/dL (0.2-1.0); CARBON DIOXIDE 30 mmol/L (21-32); CHLORIDE 106 mmol/L (98-107); CREATININE 1.1 mg/dL (0.6-1.3); ETHANOL < 3 MG/DL (0-0); GLUCOSE 106 mg/dL (74-106); MAGNESIUM 2.2 mg/dL (1.8-2.4); POTASSIUM 3.5 mmol/L (3.5-5.1); UREA NITROGEN, BLOOD 13 mg/dL (7-18)
[2017-07-05] MEDS ORDERED: LORAZEPAM 1 MG TABLET PO SCH (22:00)
[2017-07-05] MEDS ORDERED: SERT100T PO (22:52)
[2017-07-06] VITALS: BP 130/76
--- NOTE | 2017-07-06 | NUR ---
COWS/CIWA DEFERRED PATIENT SLEEPING. RESPIRATION EVEN AND UNLABORED. WILL CONTINUE TO MONITOR.
[2017-07-06 04:00] VITALS: BP 126/81
--- NOTE | 2017-07-06 04:00 | NUR ---
PATIENT SLEEPING. RESPIRATION EVEN AND UNLABORED. WILL CONTINUE TO MONITOR.
--- NOTE | 2017-07-06 07:16 | NUR ---
END OF SHIFT NOTE PATIENT SLEPT 7 HOURS. FLUID INTAKE 588 ML. VOIDED X 1. NO BM. PATIENT IS A 37 YEAR OLD MALE NEWLY ADMITTED FOR OPIATE/BENZO WITHDRAWAL. PATIENT WAS PLACED ON 5 DAY ATIVAN AND 5 DAY SUBUTEX TAPER TO START TODAY. PATIENT COMPLIANT WITH CARE AND MEDICATION. PATIENT DID NOT REQUIRE PRN MEDICATION. SCHEDULED ATIVAN GIVEN ORDERED. SAFETY MEASURES IN PLACE. CALL LIGHT IN REACH. WILL CONTINUE TO MONITOR. LAST COWS 7 AND CIWA 7.
--- NOTE | 2017-07-06 07:20 | NUR ---
Start Of Shift Report received from duct layer nurse. Pt is a 37 year old male admitted for BENZO, and Opiate withdrawals. Per duct layer nurse pt's last CIWA was 7 and COWS was a 7. Pt is continues his 5 day Ativan and 5 Day Subutex tapers. Upon start of shift pt noted laying in his bed with his eyes closed resting, breathing even and unlabored. When greeted pt stated " Im feeling terrible can I please have my morning medications so I can feel better". Pt's room appears unorganized and messy, pt has water, soda bottles and candy wraps thrown around the room, there is candy all over the floor. Pt appears anxious, sweaty and flushed. During assessment, pt is AOx3. Lung sounds clear bilaterally. Radial pulse is regular and non-bounding. Abdomen soft and non-tender. Pt's skin is warm and intact. pt denies any pain at the moment. Encouraged pt to drink plenty of fluids to keep hydrated and help the detox process. Pt did not received any PRN medications last night, pt slept a total of 8 hours last night. Bed in lowest position. Side rails up x2. Call light functioning and within reach. All needs attended and met. Will continue to monitor.
[2017-07-06 08:00] VITALS: BP 137/77
[2017-07-06] MEDS ORDERED: TUBERCULIN,PURIF.PROT.DERIV. 5 TU/0.1 ML TEST ID ONE (09:00)
[2017-07-06] MEDS: LORAZEPAM 1 MG TABLET PO SCH ×3 (09:05→21:13)
[2017-07-06] MEDS: BUPRENORPHINE HCL 2 MG TAB.SUBL SL SCH ×3 (09:05→21:13)
[2017-07-06] MEDS: GABAPENTIN 300 MG CAPSULE PO SCH ×2 (09:05→21:13)
[2017-07-06 12:00] VITALS: BP 112/77
[2017-07-06] MEDS: VENLAFAXINE XR 75 MG CAP.SR.24H PO SCH (15:00)
[2017-07-06 16:00] VITALS: BP 117/79
--- NOTE | 2017-07-06 19:00 | NUR ---
Start of Shift Patient Received. Patient is noted in his room sleeping but easily aroused to verbal stimuli. Breathing even and non labored. Per endorsement, patient continues on 5 day Subtex and 5 day Ativan. Patient has been noted to be isolative to room due to taper medication. No PRN medications administered. Last noted COWS 7 and CIWA 8. All needs attended to promptly. Will continue to monitor.
--- NOTE | 2017-07-06 19:01 | NUR ---
End Of Shift Report given to night clerk nurse, plan of care reviewed, VS monitored closely q 4 hours. Withdrawal symptoms were closely monitored, medications given as scheduled. Initial COWS 10 CIWA 10. Patient encouraged adequate PO fluid intake as tolerated. Patient presented with tremors sweats, and anxiety during the day. Pt did not receive any PRN medications during the day. Last COWS 8 CIWA 9. Per patient, Subutex and Ativan have been helping him with his withdrawal symptoms. Pt ate all of his meals, attended some groups and activities. Pt refused to have a TB test, Plan of care followed, MD updated on patients condition Patient encouraged to attend all group therapies/sessions to learn new coping skills to recent relapse, patient denies SI/HI. all safety measures in place, bed in lowest locked position, call light within reach. All needs met and attended.
[2017-07-06 20:30] VITALS: BP 134/88
[2017-07-07 00:20] VITALS: BP 126/79
[2017-07-07 04:15] VITALS: BP 122/77
--- NOTE | 2017-07-07 07:02 | NUR ---
End of Shift Patient is in bed sleeping. Breathing even and non labored. Patient continues on a 5 day Subutex taper and 5 day Ativan taper. Patient is noted to be isolative to room due to increased signs and symptoms of withdraw. No PRN medications administered. Last noted COWS 7 and CIWA 8. All needs attended to promptly. Will endorse to continue to plan of care as ordered.
[2017-07-07 07:10] LABS: HEPATITIS B SURFACE AG Negative (Negative)
--- NOTE | 2017-07-07 07:24 | NUR ---
START OF SHIFT Pt is a 37 yr old male, AA&Ox4. pt was admitted on 07/05/17 for Benzo/Opiate withdrawal and is on 5 day Subutex taper and 5 day Ativan taper as ordered. Received report from retail shift manager nurse. No PRN's were given during the night. Last COWS score was 8 and CIWA score was 7 during the night. Pt slept for 11 hrs. Pt is currently in bed sleeping with respirations even and unlabored. Skin is intact, warm and moist to touch. Pt's room is noted with dirty clothes on the floor. Safety precautions observed. Call light is within reach. Will continue to monitor.
[2017-07-07 08:00] VITALS: BP 117/73
[2017-07-07] MEDS ORDERED: BUPRENORPHINE HCL 2 MG TAB.SUBL SL SCH (09:00)
[2017-07-07] MEDS: LORAZEPAM 1 MG TABLET PO SCH ×4 (09:30→20:16)
[2017-07-07] MEDS: GABAPENTIN 300 MG CAPSULE PO SCH ×2 (09:30→20:15)
[2017-07-07] MEDS: VENLAFAXINE XR 75 MG CAP.SR.24H PO SCH (09:39)
[2017-07-07 12:00] VITALS: BP 151/99
[2017-07-07] MEDS: BUPRENORPHINE HCL 2 MG TAB.SUBL SL SCH ×2 (15:00→20:16)
[2017-07-07 16:00] VITALS: BP 126/74
--- NOTE | 2017-07-07 18:52 | NUR ---
END OF SHIFT Pt is a 37 yr old male, AA&Ox4. Pt was admitted on 07/05/17 for Benzo/Opiate withdrawal and is on 5 day Subutex and 5 day Ativan taper as ordered. Medication karan well. Pt has been noted with increase fatigue and emotional over treatment. Pt stated of feeling "very depressed" and was noted with flat affect and disheveled appearances. Pt was encouraged to attend group but he refused to attend group therapy and remained in his room throughout the day. Skin is intact, warm and moist to touch. Pt is on fall and seizure precautions. Last COWS score was 7 and CIWA score was 8 at 1600. No PRN's were given during the day. Call light is within reach.
--- NOTE | 2017-07-07 19:59 | NUR ---
START OF SHIFT NOTE Received report from outgoing nurse. Pt. is in his room and is A/O to person, place, time, and purpose. Pt. presents with a blunted affect, depressed mood, withdrawn, disheveled appearance, and unkempt room. Pt. denies S/I and H/I. Pt. attended group therapy sessions. Pt. received no PRN medications. Last COWS 7 and CIWA 8 @ 1600. Pt. is on a 5 day Ativan and Subutex taper. Call light within reach. Pt. will continue to be monitored and needs met.
[2017-07-07 20:00] VITALS: BP 136/93
--- NOTE | 2017-07-08 | NUR ---
RN NOTE Pt. deferred COWS and CIWA, and refused V/S. Pt. is in bed w/ his eyes closed. Pt.'s breathing is unlabored and even.
--- NOTE | 2017-07-08 04:23 | NUR ---
RN NOTE Pt. deferred COWS and CIWA. Pt. also refused V/S. Pt. is in bed w/ his eyes closed. Pt.'s breathing is unlabored and even.
--- NOTE | 2017-07-08 07:03 | NUR ---
END OF SHIFT NOTE Endorsed pt. to oncoming nurse. Pt. is in his room and is A/O to person, place, time, and purpose. Pt. continues to present with a flat affect, depressed and withdrawn mood, and disheveled appearance. Pt. denies S/I and H/I. Pt. attended group therapy sessions. Pt. received no PRN medications during the night. Pts fluid intake was 855 ml. Pt. voided 1 time and slept for 9 hrs. Last COWS 7 and CIWA 8 @ 1999. Call light within reach.
--- NOTE | 2017-07-08 07:30 | NUR ---
START OF SHIFT Pt 37 y/o male admitted for opiate/ benzo/ meth withdrawal. Pt received in room on bed with eyes closed resting, but easily arousable to name. Pt alert and oriented to name, place, and time. Perrla. Skin warm and moist to touch. Respirations even and unlabored. Bilateral hand tremors noted. Pt with sad affect this morning. Pt denies any SI. Pt appears disheveled. Clothes scattered throughout the room. Encouraged to maintain hygiene. It was reported that pt slept for 9 hours last night. Pt is on a 5 day ativan taper and is on day 3. Pt is also on a 5 day subutex taper and is on day 3. Last cows=7 and ciwa=8 @ 2100. Bed on lowest position with side rails x2 up for safety. Call light within reach.
[2017-07-08 08:00] VITALS: BP 111/60
[2017-07-08] MEDS: LORAZEPAM 1 MG TABLET PO SCH ×3 (08:44→20:37)
[2017-07-08] MEDS: VENLAFAXINE XR 75 MG CAP.SR.24H PO SCH (08:44)
[2017-07-08] MEDS: BUPRENORPHINE HCL 2 MG TAB.SUBL SL SCH ×3 (08:44→20:37)
[2017-07-08] MEDS: GABAPENTIN 300 MG CAPSULE PO SCH ×3 (08:44→20:37)
[2017-07-08 12:00] VITALS: BP 120/68
[2017-07-08 16:00] VITALS: BP 117/70
--- NOTE | 2017-07-08 17:05 | NUR ---
Therapist prompted client to attend daily group sessions. Client related that he would attend the next group session.
--- NOTE | 2017-07-08 18:41 | NUR ---
END OF SHIFT Pt 37 y/o male admitted for opiate/ benzo/ meth withedrawal. Pt alert and oriented to name, place, and time. Perrla. Skin warm and moist to touch. Respirations even and unlabored. Bilateral hand tremors noted. Pt with sad affect. Pt denies any SI. Pt appears disheveled with hair uncombed. Clothes and food wrappings scattered throughout the room. Encouraged to maintain hygiene. Pt observed in room and activity room throughout the day. Pt attended group activity. Pt was seen by MD today. Pt medication compliant and tolerated well. No ASE noted. Cows=9@0800, 9@1200, and 9@1600. Ciwa=9@0800, 9 @1200, and 9@1600. Pt is on a 5 day ativan taper and is on day 3. Pt is also on a 5 day subutex taper and is on day 3. Bed on lowest position with side rails x2 up for safety. Call light within reach.
--- NOTE | 2017-07-08 19:51 | NUR ---
START OF SHIFT NOTE Received report from outgoing nurse. Pt. is a 37 y/o male A/O to person, place, time, and purpose. Pt. was admitted for medically supervised withdrawal from Opiates and Benzodiazepines. Pt. presents w/ anxiety, flat affect, depressed and withdrawn mood, fine tremors, and sweats. Pt. received no PRN medications during the previous shift. Pt. denies S/I and H/I. Last COWS 9 and CIWA 9 @ 1600. Call light within reach. Pt. will continue to be monitored and needs met.
[2017-07-08 20:00] VITALS: BP 119/76
[2017-07-08] MEDS: CLONIDINE HCL 0.1 MG TABLET PO SCH (20:38)
--- NOTE | 2017-07-09 00:15 | NUR ---
RN NOTE Pt. deferred COWS and CIWA, and refused V/S. Pt. is in bed w/ his eyes closed. Pt.'s breathing is unlabored and even.
--- NOTE | 2017-07-09 04:19 | NUR ---
RN NOTE Pt. deferred COWS and CIWA. Pt. refused V/S. Pt. is in bed w/ his eyes closed. Pt.'s breathing is unlabored and even.
--- NOTE | 2017-07-09 07:17 | NUR ---
END OF SHIFT NOTE Endorsed Pt. to oncoming nurse. Pt. is a 37 y/o male A/O to person, place, time, and purpose. Pt. was admitted for medically supervised withdrawal from Opiates and Benzodiazepines. Pt. continues to present w/ anxiety, flat affect, depressed and withdrawn mood, fine tremors, and sweats. Pt. received no PRN medications during the previous shift. Pt.s fluid intake was 500 ml. Pt. voided 2 times and slept for 7 hrs. Last COWS 9 and CIWA 9 @ 1999. Call light within reach.
--- NOTE | 2017-07-09 07:30 | NUR ---
Start of shift Pt is a 37 y/o male admitted for medically supervised withdrawal from Opiates and Benzodiazepines. Pt on 5 day Subutex and Ativan taper. Tolerating well. Pt presents with anxiety, flat affect, depressed and withdrawn mood, fine tremors, and sweats. Pt received no PRN medications during PM shift. Pt slept for 7 hours last night. Last COWS 9 and CIWA 9 @ 1999. Continue to encourage patient to attend group therapies for relapse prevention. Pt was encouraged to increased fluid intake as tolerated. Pt slept for a total of 9 hours. Allergic to shell fish, FULL CODE. Safety measures in the place: Call light within reach, bed in the lowest position locked, padded rails up x2. Will continue to monitor for withdrawal symptoms.
[2017-07-09 08:00] VITALS: BP 104/58
[2017-07-09] MEDS: GABAPENTIN 300 MG CAPSULE PO SCH ×3 (09:30→21:10)
[2017-07-09] MEDS: VENLAFAXINE XR 75 MG CAP.SR.24H PO SCH (09:30)
[2017-07-09] MEDS: BUPRENORPHINE HCL 2 MG TAB.SUBL SL SCH ×2 (09:31→21:11)
[2017-07-09] MEDS: LORAZEPAM 1 MG TABLET PO SCH ×2 (09:31→21:10)
[2017-07-09] MEDS: CLONIDINE HCL 0.1 MG TABLET PO SCH ×2 (09:31→21:10)
[2017-07-09 12:00] VITALS: BP 112/60
[2017-07-09 16:00] VITALS: BP 94/48
[2017-07-09] MEDS ORDERED: GABA-534 PO (18:04)
[2017-07-09] MEDS ORDERED: DICY20TA28 PO (18:04)
[2017-07-09] MEDS ORDERED: METH-406 PO (18:04)
[2017-07-09] MEDS ORDERED: CLON0.1T14 PO (18:04)
[2017-07-09] MEDS ORDERED: HYDR-3895 PO (18:04)
[2017-07-09] MEDS ORDERED: DIPH50CA37 PO (18:04)
[2017-07-09] MEDS ORDERED: IBUP-1955 PO (18:04)
--- NOTE | 2017-07-09 18:38 | NUR ---
End of shift Pt is a 37 y/o male admitted for medically supervised withdrawal from Opiates and Benzodiazepines. Pt on 5 day Subutex and Ativan taper. Tolerating well. Pt presents with anxiety, flat affect, depressed and withdrawn mood, fine tremors, and sweats. Pt received no PRN medications today. Last COWS 8 and CIWA 8. Continue to encourage patient to attend group therapies for relapse prevention. Pt was isolative and did not attend group therapy sessions today. Pt encouraged to verbalize feelings, encouraged to develop coping skills and utilization of non pharmacological interventions. Allergy to shell fish, FULL CODE. Safety measures in the place: Call light within reach, bed in the lowest position locked, padded rails up x2. Will continue to monitor for withdrawal symptoms. Will endorse to PM shift.
[2017-07-09 20:00] VITALS: BP 122/71
--- NOTE | 2017-07-09 20:00 | NUR ---
START OF SHIFT NOTE RECEIVED REPORT FROM DAY SHIFT NURSE. PATIENT IS A 37 YEAR OLD MALE ADMITTED FOR OPIATE/BENZO WITHDRAWAL. PATIENT IS ON 4TH DAY OF 5 DAY SUBUTEX AND 5 DAY ATIVAN TAPER. PATIENT ISOLATIVE, DID NOT ATTEND GROUPS BUT GOES DOWN TO SMOKE. PATIENT DID NOT REQUIRE PRN MEDICATION . LAST COWS 8 AND CIWA 8. RECEIVED PATIENT IN THE ROOM. PATIENTS ROOM DIRTY, GARBAGE AROUND ROOM, DIRTY LINENS, REFUSES TO CHANGE, CLOTHES THROWN ON FLOOR . PATIENT WITH FLAT AFFECT, DISHEVELED, ANXIOUS, SAD, AVOIDANT EYE CONTACT, FACE FLUSHED, SWEATING , FINE HAND TREMORS AND FATIGUE. SAFETY MEASURES IN PLACE. CALL LIGHT IN REACH. WILL CONTINUE TO MONITOR
--- NOTE | 2017-07-10 | NUR ---
COWS AND CIWA DEFERRED PATIENT SLEEPING. RESPIRATION EVEN AND UNLABORED. VS REFUSED. SAFETY MEASURES IN PLACE. CALL LIGHT IN REACH. WILL CONTINUE TO MONITOR.
--- NOTE | 2017-07-10 04:00 | NUR ---
COWS AND CIWA DEFERRED PATIENT SLEEPING. RESPIRATION EVEN AND UNLABORED. VS REFUSED. SAFETY MEASURES IN PLACE. CALL LIGHT IN REACH. WILL CONTINUE TO MONITOR.
--- NOTE | 2017-07-10 07:08 | NUR ---
END OF SHIFT NOTE PATIENT SLEPT 8 HOURS. FLUID INTAKE 1,210 ML. VOIDED X 3. NO BM. MONITORED PATIENT THROUGHOUT SHIFT . PATIENT WITH FLAT AFFECT, DISHEVELED, ANXIOUS, SAD, AVOIDANT EYE CONTACT, FACE FLUSHED, SWEATING , FINE HAND TREMORS AND FATIGUE BEGINNING OF SHIFT. PATIENT DID NOT REQUIRE PRN MEDICATION. PATIENT WITHDRAWN, IN THE ROOM MOST OF THE SHIFT. HE TENDS TO BE ISOLATIVE. ENCOURAGED TO ATTEND ACTIVITY AND GROUPS. SAFETY MEASURES IN PLACE. CALL LIGHT IN REACH. WILL CONTINUE TO MONITOR. LAST COWS 8 AND CIWA 7.
--- NOTE | 2017-07-10 08:07 | NUR ---
Start of shift note; Received report from night nurse. Patient is a 37 year old male admitted on 07/05/17 for Benzodiazepine/ Opiate withdrawals. Patient's last COWS score is 8 and last CIWA score is 7. Patient was placed on a 5 day Ativan and 5 day Subutex taper. Educated patient regarding the importance of compliance to treatment and medication regime. Encouraged patient to participate in group activities and therapy. All safety measures secured. Will continue to monitor patient.
[2017-07-10] MEDS: GABAPENTIN 300 MG CAPSULE PO SCH ×3 (08:29→21:32)
[2017-07-10] MEDS: VENLAFAXINE XR 75 MG CAP.SR.24H PO SCH (08:29)
[2017-07-10] MEDS: CLONIDINE HCL 0.1 MG TABLET PO SCH ×2 (08:29→21:32)
[2017-07-10 08:32] VITALS: BP 119/75
[2017-07-10] MEDS ORDERED: LORAZEPAM 1 MG TABLET PO SCH (09:00)
[2017-07-10] MEDS ORDERED: BUPRENORPHINE HCL 2 MG TAB.SUBL SL SCH (09:00)
[2017-07-10 12:00] VITALS: BP 103/66
[2017-07-10 16:00] VITALS: BP 108/65
--- NOTE | 2017-07-10 18:53 | NUR ---
End of shift note; Patient is AOX4, patient appears anxious, complaining of muscle aches and stomach cramps. Patient's last COWS score is 7 and last CIWA score is 5 at 1600. Patient participated in group activities and therapy. Patient remained compliant with treatment plan and medication regime. Medications were effective in reducing withdrawal symptoms. All safety measures secured. Met all needs.
--- NOTE | 2017-07-10 19:25 | NUR ---
START OF SHIFT Patient is a 37-year-old male admitted on 07/05/17 for benzo and opiate withdrawal. Patient has completed a 5-day Ativan and 5-day Subutex taper, tolerated well, scheduled for discharge tomorrow. Patients last COWS was 7, last CIWA 5 per endorsement. Patient received no PRN medications today. Upon assessment, patient is alert and oriented x4, found in bed awake. Patients room is cluttered with snack wrappers and beverage bottles. Patient states, "I'm ready to go tomorrow" with a smile. Patient is on fall and seizure precautions, side rails up x2, bed locked in low position, call light within reach. Will continue to monitor.
[2017-07-10 20:00] VITALS: BP 107/62
--- NOTE | 2017-07-11 | NUR ---
VITALS REFUSED, COWS & CIWA DEFERRED Patient refused vital signs in order to sleep uninterrupted. COWS and CIWA deferred at this time due to patient sleeping; to be assessed and scored while patient is awake. Respirations even and unlabored, 16/min. Safety measures in place, side rails up x2, bed locked in low position, call light within reach. Will continue to monitor.
--- NOTE | 2017-07-11 04:00 | NUR ---
VITALS REFUSED, COWS & CIWA DEFERRED Patient refused vital signs. COWS and CIWA deferred due to patient sleeping; to be assessed and scored while patient is awake. Respirations even and unlabored, 14/min. Safety measures in place, side rails up x2, bed locked in low position, call light within reach. Will continue to monitor.
--- NOTE | 2017-07-11 07:12 | NUR ---
END OF SHIFT Patient is a 37-year-old male admitted on 07/05/17 for benzo and opiate withdrawal. Patient has completed a 5-day Ativan and 5-day Subutex taper, tolerated well, scheduled for discharge today. Patients last COWS was 5, last CIWA 7. Patient received no PRN medications during the shift. Patient slept for 9 hours, total intake of 1,079mL, void x2, stool x0. Patient is on fall and seizure precautions, side rails up x2, bed locked in low position, call light within reach. Will endorse to day shift.
--- NOTE | 2017-07-11 07:58 | NUR ---
Start of shift note; Received report from night nurse. Patient is a 37 year old male admitted on 07/05/17 for Benzodiazepine/ Opiate withdrawals. Patient's last COWS score is 5 and last CIWA score is 7. Patient was placed on a 5 day Ativan and 5 day Subutex taper. Patient completed treatment without any adverse reactions. Patient is medically cleared for discharge today. All safety measures secured.
[2017-07-11 08:00] VITALS: BP 136/83
[2017-07-11] MEDS: VENLAFAXINE XR 75 MG CAP.SR.24H PO SCH (08:03)
[2017-07-11] MEDS: GABAPENTIN 300 MG CAPSULE PO SCH (08:03)
[2017-07-11] MEDS: CLONIDINE HCL 0.1 MG TABLET PO SCH (08:03)
--- NOTE | 2017-07-11 08:05 | NUR ---
Discharge note; Patient is AOX4. Patient completed treatment without any adverse reactions. Patient is medically cleared for discharge today per MD. All patient's valuables , belongings, home medications and prescriptions returned to patient. Patient denies S/I and H/I. Patient was escorted out of the hospital by CUSHION INSTALLER. Patient left the hospital in a stable condition.
== END 2017-07-11 08:05 | disposition home or self-care (01) | DRG 895 ==
LOC: SRC 19:25
PROVIDERS: ADMIT Internal Medicine; ATTEND Internal Medicine
DX: F13.230 Sedative, hypnotic or anxiolytic dependence with withdrawal, uncomplicated (principal); F33.2 Major depressive disorder, recurrent severe without psychotic features; I15.9 Secondary hypertension, unspecified; F11.23 Opioid dependence with withdrawal; F15.23 Other stimulant dependence with withdrawal; F10.21 Alcohol dependence, in remission; F17.210 Nicotine dependence, cigarettes, uncomplicated; G89.29 Other chronic pain; Z91.89 Other specified personal risk factors, not elsewhere classified; Z98.1 Arthrodesis status; Z81.1 Family history of alcohol abuse and dependence; Z80.8 Family history of malignant neoplasm of other organs or systems; F41.9 Anxiety disorder, unspecified; Y90.0 Blood alcohol level of less than 20 mg/100 ml; Z79.899 Other long term (current) drug therapy; M54.5 Low back pain
CPT/HCPCS: 36415; 70030-TC; 80307; 80324; 80346; 83735; 85025; 86592; 86705; 86803; 87340; 87806; A4663; G0480